=== PATIENT | male | born 1965 | race African-American/Black ===

== ENCOUNTER 2016-11-30 18:41 | Inpatient (IN) | payer OTHER ==
[2016-11-30 19:35] VITALS: BMI 21.4
--- NOTE | 2016-11-30 19:46 | HP ---
CIWA Score - CIWA Score Nausea/Vomitin Muscle Tremors: 4-Moderate,w/Arms Extend Anxiety: 4-Mod. Anxious/Guarded Agitation: 4-Moderately Restless Paroxysmal Sweats: 1-Minimal Palms Moist Orientation: 1-Uncertain about Date Tacttile Disturbances: 0-None Auditory Disturbances: 0-None Visual Disturbances: 0-None Headache: 3-Moderate CIWA-Ar Total Score: 19 Admission ROS BHS - HPI Chief Complaint: withdrawal sx Allergies/Adverse Reactions: Allergies Allergy/AdvReac Type Severity Reaction Status Date / Time No Known Allergies Allergy Verified 11/30/16 20:15 History of Present Illness: 51 years old male with long history of alcohol nicotine dependence, denies medical issue has depression is admitted to detox Exam Limitations: No Limitations - Ebola screening Have you traveled outside of the country in the last 21 days: No Have you had contact with anyone from an Ebola affected area: No Have you been sick,other than usual withdrawal symptoms: No Do you have a fever: No - Review of Systems Constitutional: Chills, Loss of Appetite, Changes in sleep, Unexplained wgt Loss EENT: reports: Hearing Loss (right ear) Respiratory: reports: SOB with Exertion, Productive cough Cardiac: reports: Palpitations GI: reports: Nausea, Poor Fluid Intake, Vomiting, Indigestion, Abdominal cramping : reports: No Symptoms Reported Musculoskeletal: reports: Back Pain Integumentary: reports: No Symptoms Reported Neuro: reports: Seizure (last episode unknown), Tremors Endocrine: reports: No Symptoms Reported Hematology: reports: No Symptoms Reported Psychiatric: reports: Judgement Intact, Depressed Other Systems: Reviewed and Negative Patient History - Patient Medical History Hx Anemia: No Hx Asthma: No (BUT PAST HX OF SOB) Hx Chronic Obstructive Pulmonary Disease (COPD): Yes Hx Cancer: No Hx Cardiac Disorders: No Hx Congestive Heart Failure: No Hx Hypertension: No Hx Hypercholesterolemia: No Hx Pacemaker: No HX Cerebrovascular Accident: No Hx Seizures: Yes (DUE TO ALCOHOL W/S) Hx Dementia: No Hx Diabetes: No Hx Gastrointestinal Disorders: No Hx Liver Disease: No Hx Genitourinary Disorders: No Hx Sexually Transmitted Disorders: No Hx Renal Disease (ESRD): No Hx Thyroid Disease: No Hx Human Immunodeficiency Virus (HIV): No (NEGATIVE HX) Hx Hepatitis C: No Hx Depression: Yes (NO CURRENT MED) Hx Suicide Attempt: Yes (OD ON PILLS AT 30+ YRS; DENIES CURRENT IDEATIONS) Hx Bipolar Disorder: No Hx Schizophrenia: No - Patient Surgical History Past Surgical History: No Hx Neurologic Surgery: No Hx Cataract Extraction: No Hx Cardiac Surgery: No Hx Lung Surgery: No Hx Breast Surgery: No Hx Breast Biopsy: No Hx Abdominal Surgery: No Hx Appendectomy: No Hx Cholecystectomy: No Hx Genitourinary Surgery: No Hx Orthopedic Surgery: No - PPD History Previous Implant?: Yes Documented Results: Negative w/proof Implanted On Prior [facility] Admission?: Yes Date: 02/25/16 PPD to be Administered?: No - Smoking Cessation Smoking history: Current every day smoker Have you smoked in the past 12 months: Yes Aproximately how many cigarettes per day: 20 Cigars Per Day: 0 Hx Chewing Tobacco Use: No Initiated information on smoking cessation: Yes 'Breaking Loose' booklet given: 11/30/16 - Substance & Tx. History Hx Alcohol Use: Yes Hx Substance Use: No Substance Use Type: Alcohol Hx Substance Use Treatment: Yes - Substances Abused Alcohol Route: Oral Frequency: Daily Amount used: quart beer Age of first use: 13 Date of Last Use: 11/30/16 Family Disease History - Family Disease History Family Disease History: Diabetes: Mother (), Brother, Sister, Heart Disease: Mother, Other: Father (ALCOHOLISM-) Admission Physical Exam S - Vital Signs Vital Signs: Vital Signs - 24 hr 11/30/16 19:02 Temperature 98.6 F Pulse Rate 106 H Respiratory 20 Rate Blood Pressure 152/93 - Physical General Appearance: Yes: Appropriately Dressed, Moderate Distress, Thin, Tremorous, Irritable, Sweating, Anxious HEENTM: Yes: Hearing grossly Normal, Normal ENT Inspection, Normocephalic, Normal Voice Respiratory: Yes: Chest Non-Tender, Lungs Clear, Normal Breath Sounds, No Respiratory Distress, No Accessory Muscle Use Neck: Yes: Supple, Trachea in good position Breast: Yes: Breasts Symetrical Cardiology: Yes: Regular Rhythm, Regular Rate, S1, S2 Abdominal: Yes: Non Tender, Soft Genitourinary: Yes: Within Normal Limits Back: Yes: Normal Inspection Musculoskeletal: Yes: full range of Motion, Gait Steady, Back pain, Muscle Pain Extremities: Yes: Normal Range of Motion, Non-Tender, Tremors Neurological: Yes: Alert, Motor Strength 5/5, Normal Response, Depressed Affect Integumentary: Yes: Warm Lymphatic: Yes: Within Normal Limits - Diagnostic (1) Alcohol dependence with uncomplicated withdrawal Current Visit: Yes Status: Acute (2) Nicotine dependence Current Visit: Yes Status: Acute Qualifiers: Nicotine product type: cigarettes Substance use status: in withdrawal Qualified Code(s): F17.213 - Nicotine dependence, cigarettes, with withdrawal (3) Weight loss Current Visit: Yes Status: Acute (4) GERD (gastroesophageal reflux disease) Current Visit: Yes Status: Acute Qualifiers: Esophagitis presence: without esophagitis Qualified Code(s): K21.9 - Gastro-esophageal reflux disease without esophagitis (5) Depression (emotion) Current Visit: Yes Status: Suspected Qualifiers: Depression Type: dysthymia Qualified Code(s): F34.1 - Dysthymic disorder Cleared for Admission S - Detox or Rehab [facility] Level of Care: Medically Managed Detox Regimen/Protocol: Librium S Breath Alcohol Content Breath Alcohol Content: 0 Urine Drug Screen - Results Drug Screen Negative: Yes
[2016-11-30] MEDS ORDERED: chlordiazePOXIDE HCL 25 MG CAPSULE PO ONE (19:50)
[2016-11-30] MEDS ORDERED: NICOTINE POLACRILEX 2 MG GUM BC PRN (19:50)
[2016-11-30] MEDS ORDERED: diphenhydrAMINE HCL 50 MG CAPSULE PO PRN (19:50)
[2016-11-30] MEDS ORDERED: MAGNESIUM CITRATE 300 ML BOTTLE PO PRN (19:50)
[2016-11-30] MEDS ORDERED: MENTHOL/PHENOL 1 EACH UD MM PRN (19:50)
[2016-11-30] MEDS ORDERED: hydrOXYzine PAMOATE 50 MG CAPSULE (FP) PO PRN (19:50)
[2016-11-30] MEDS ORDERED: MAG HYDROX/AL HYDROX/SIMETH 30 ML UNIT-DOSE CUP PO PRN (19:50)
[2016-11-30] MEDS ORDERED: LOPERAMIDE HCL 2 MG CAPSULE PO PRN (19:50)
[2016-11-30] MEDS ORDERED: chlordiazePOXIDE HCL 25 MG CAPSULE PO PRN (19:50)
[2016-11-30] MEDS ORDERED: MAGNESIUM HYDROX 2400MG/30ML ORAL SUSPENSION 30 ML CUP PO PRN (19:50)
[2016-11-30] MEDS ORDERED: P-EPHED 60MG/TRIPROLIDI 2.5MG TABLET PO PRN (19:50)
[2016-11-30] MEDS ORDERED: ONDANSETRON *ODT* 4 MG TABLET SL PRN (19:52)
[2016-11-30] MEDS: THIAMINE HCL 100 MG TABLET (FP) PO SCH (21:23)
[2016-11-30] MEDS: cloNIDine HCL 0.1 MG TABLET PO SCH (21:24)
[2016-11-30] MEDS: RANITIDINE HCL 150 MG TABLET (FP) PO SCH (21:24)
[2016-11-30 23:41] LABS: URINE APPEARANCE CLEAR; URINE BILIRUBIN NEGATIVE (NEGATIVE); URINE BLOOD NEGATIVE (NEGATIVE); URINE COLOR YELLOW; URINE GLUCOSE (UA) NEGATIVE (NEGATIVE); URINE KETONE TRACE (NEGATIVE); URINE LEUK ESTERASE NEGATIVE (NEGATIVE); URINE NITRITE NEGATIVE (NEGATIVE); URINE PROTEIN NEGATIVE (NEGATIVE); URINE UROBILINOGEN 2.0 E.U/dl E.U./dl (0.2-1.0)
[2016-12-01] MEDS: chlordiazePOXIDE HCL 25 MG CAPSULE PO SCH ×5 (00:12→22:27)
[2016-12-01 10:04] LABS: MCH 32.4 pg (25.7-33.7); MCHC 33.2 g/dl (32.0-35.9); MEAN CELL VOLUME 97.6 fl (80-96); MEAN PLT VOLUME 7.3 fl (7.5-11.1); PLATELET COUNT 215 K/MM3 (134-434); RDW 14.8 % (11.9-15.9); WHITE BLOOD COUNT 6.2 K/mm3 (4.0-10.0)
[2016-12-01] MEDS: cloNIDine HCL 0.1 MG TABLET PO SCH ×2 (10:22→22:28)
[2016-12-01] MEDS: PRENATAL VITAMINS W/ FOLIC ACID TABLET (FP) PO SCH (10:22)
[2016-12-01] MEDS: NICOTINE 21 MG/24 HOURS TOPICAL PATCH TD SCH (10:23)
[2016-12-01] MEDS: guaiFENesin/D-METHORPHAN HB 10 ML UNIT-DOSE CUPS PO PRN ×2 (10:24→22:32)
[2016-12-01] MEDS: RANITIDINE HCL 150 MG TABLET (FP) PO SCH ×2 (10:24→22:28)
[2016-12-01] MEDS: ACETAMINOPHEN 325 MG TABLET (FP) PO PRN ×2 (10:25→22:32)
[2016-12-01 10:34] LABS: ALBUMIN 3.5 g/dl (3.4-5.0); ALK PHOS 48 U/L (45-117); ANION GAP 9 (8-16); BILIRUBIN,TOTAL 0.6 mg/dL (0.2-1.0); CO2 28 mmol/L (21-32); CREATININE 0.8 mg/dL (0.7-1.3); GLUCOSE,RANDOM 110 mg/dL (74-106); SGOT/AST 25 U/L (15-37); SGPT/ALT 26 U/L (12-78)
--- NOTE | 2016-12-01 11:32 | PN ---
[facility] CIWA - CIWA Score Nausea/Vomitin-No Nausea/No Vomiting Muscle Tremors: 4-Moderate,w/Arms Extend Anxiety: 4-Mod. Anxious/Guarded Agitation: 4-Moderately Restless Paroxysmal Sweats: 1-Minimal Palms Moist Orientation: 0-Oriented Tacttile Disturbances: 3-Moderate Itch/Numb/Burn Auditory Disturbances: 0-None Visual Disturbances: 0-None Headache: 0-None Present CIWA-Ar Total Score: 16 BHS Progress Note (SOAP) Subjective: ANXIETY,TREMORS,SWEATS. Objective: 12/01/16 11:31 Vital Signs Temperature 96.6 F L 12/01/16 10:27 Pulse Rate 75 12/01/16 10:27 Respiratory Rate 20 12/01/16 10:27 Blood Pressure 128/75 12/01/16 10:27 O2 Sat by Pulse Oximetry (%) Laboratory Last Values WBC 6.2 K/mm3 (4.0-10.0) 12/01/16 07:15 RBC 4.31 M/mm3 (4.00-5.60) 12/01/16 07:15 Hgb 14.0 GM/dL (11.7-16.9) 12/01/16 07:15 Hct 42.1 % (35.4-49) 12/01/16 07:15 MCV 97.6 fl (80-96) H 12/01/16 07:15 MCHC 33.2 g/dl (32.0-35.9) 12/01/16 07:15 RDW 14.8 % (11.9-15.9) D 12/01/16 07:15 Plt Count 215 K/MM3 (134-434) D 12/01/16 07:15 MPV 7.3 fl (7.5-11.1) L 12/01/16 07:15 Sodium 142 mmol/L (136-145) 12/01/16 07:15 Potassium 4.0 mmol/L (3.5-5.1) 12/01/16 07:15 Chloride 105 mmol/L (98-107) 12/01/16 07:15 Carbon Dioxide 28 mmol/L (21-32) 12/01/16 07:15 Anion Gap 9 (8-16) 12/01/16 07:15 BUN 14 mg/dL (7-18) 12/01/16 07:15 Creatinine 0.8 mg/dL (0.7-1.3) D 12/01/16 07:15 Creat Clearance w eGFR > 60 (>60) 12/01/16 07:15 Random Glucose 110 mg/dL (74-106) H D 12/01/16 07:15 Calcium 9.0 mg/dL (8.5-10.1) 12/01/16 07:15 Total Bilirubin 0.6 mg/dL (0.2-1.0) 12/01/16 07:15 AST 25 U/L (15-37) 12/01/16 07:15 ALT 26 U/L (12-78) 12/01/16 07:15 Alkaline Phosphatase 48 U/L (45-117) 12/01/16 07:15 Total Protein 7.0 g/dl (6.4-8.2) 12/01/16 07:15 Albumin 3.5 g/dl (3.4-5.0) 12/01/16 07:15 Urine Color Yellow 11/30/16 22:28 Urine Appearance Clear 11/30/16 22:28 Urine pH 5.0 (5.0-8.0) 11/30/16 22:28 Ur Specific [place] 1.020 (1.001-1.035) 11/30/16 22:28 Urine Protein Negative (NEGATIVE) 11/30/16 22:28 Urine Glucose (UA) Negative (NEGATIVE) 11/30/16 22:28 Urine Ketones Trace (NEGATIVE) H 11/30/16 22:28 Urine Blood Negative (NEGATIVE) 11/30/16 22:28 Urine Nitrite Negative (NEGATIVE) 11/30/16 22:28 Urine Bilirubin Negative (NEGATIVE) 11/30/16 22:28 Urine Urobilinogen 2.0 e.u/dl E.U./dl (0.2-1.0) 11/30/16 22:28 Ur Leukocyte Esterase Negative (NEGATIVE) 11/30/16 22:28 Assessment: 12/01/16 11:31 WITHDRAWAL SX Plan: CONTINUE DETOX INCREASE PO FLUIDS
[2016-12-01] MEDS ORDERED: INFLUENZA VACCINE 45 MCG/0.5 ML (MDV 16-17) IM ONE (12:00)
[2016-12-01 12:53] LABS: HIV 1 & 2 AB NEGATIVE; HIV 1 AGp24 NEGATIVE
--- NOTE | 2016-12-01 14:26 | EKG ---
Test Reason : Blood Pressure : / mmHG Vent. Rate : 086 BPM Atrial Rate : 086 BPM P-R Int : 138 ms QRS Dur : 140 ms QT Int : 418 ms P-R-T Axes : 055 053 020 degrees QTc Int : 500 ms NORMAL SINUS RHYTHM RIGHT BUNDLE BRANCH BLOCK ABNORMAL ECG WHEN COMPARED WITH ECG OF 15-JUL-2014 03:40, NO SIGNIFICANT CHANGE WAS FOUND Confirmed by DIAMOND DELUCA MD ([id number]) on 12/01/2016 2:25:59 PM Referred By: Matt Shane Confirmed By:DIAMOND DELUCA MD
--- NOTE | 2016-12-01 15:24 | CONSULT ---
[facility] Psychiatric Consult - Data Date of interview: 12/01/16 Admission source: [facility] Identifying data: This is 51 years old male with history of Schozoaffective disorder recently [facility], reports intoxicated with: Alcohol, Cannabis, Cocaine, Nicotine and PCP Substance Abuse History: - Smoking Cessation. Smoking history: Current every day smoker. Have you smoked in the past 12 months: Yes. Aproximately how many cigarettes per day: 20. Cigars Per Day: 0. Hx Chewing Tobacco Use: No. Initiated information on smoking cessation: Yes. 'Breaking Loose' booklet given : 11/30/16. - Substance & Tx. History. Hx Alcohol Use: Yes. Hx Substance Use : No. Substance Use Type: Alcohol. Hx Substance Use Treatment: Yes. - Substances Abused. Alcohol. Route: Oral. Frequency: Daily. Amount used: quart beer. Age of first use: 13. Date of Last Use: 11/30/16 Medical History: GERD, Weight loss history, DVT history, Seizure history, history of Rhabdomyilysis Psychiatric History: Patient reports history of Schizoaffective disorder, reports recently dischrged from [facility] [place], [place], where he spent 2 years, reports no medications taking pruior to admission, denies suicidAL history Physical/Sexual Abuse/Trauma History: Denies Additional Comment: OBSERVATION. Detox Unit Care Protocol Mental Status Exam - Mental Status Exam Alert and Oriented to: Person Cognitive Function: Fair Patient Appearance: Unkempt Mood: Suspicious, Anxious Affect: Constricted Patient Behavior: Cooperative Speech Pattern: Excessive Voice Loudness: Mildly Loud Thought Process: Circumstantial Thought Disorder: Being Controlled Hallucinations: Denies Suicidal Ideation: Denies Homicidal Ideation: Denies Insight/Judgement: Fair Sleep: Difficulty falling asleep Appetite: Weight loss Muscle strength/Tone: Mild Hypertonicity Gait/Station: Normal Additional Comments: OBSERVATION. Detox Unit Care Protocol Psychiatric Findings - Problem List ([place] 1, 2,3) (1) Alcohol dependence with uncomplicated withdrawal Current Visit: Yes Status: Acute (2) Nicotine dependence Current Visit: Yes Status: Acute Qualifiers: Nicotine product type: cigarettes Substance use status: in withdrawal Qualified Code(s): F17.213 - Nicotine dependence, cigarettes, with withdrawal (3) Weight loss Current Visit: Yes Status: Acute (4) Drug-induced mood disorder Current Visit: No Status: Acute (5) Benzodiazepine abuse Current Visit: No Status: Chronic (6) Cocaine abuse Current Visit: No Status: Chronic (7) PCP dependence Current Visit: No Status: Chronic (8) Schizoaffective disorder Current Visit: No Status: Chronic (9) Non compliance with medical treatment Current Visit: Yes Status: Acute - Initial Treatment Plan Initial Treatment Plan: OBSERVATION. Detox Unit Care Protocol
[2016-12-01] MEDS ORDERED: QUEtiapine FUMARATE 25 MG TABLET (FP) ONE (21:41)
[2016-12-01] MEDS: QUEtiapine FUMARATE 50 MG TABLET PO SCH (22:28)
[2016-12-01] MEDS: THIAMINE HCL 100 MG TABLET (FP) PO SCH (22:28)
[2016-12-02] MEDS: CYCLOBENZAPRINE HCL 10 MG TABLET (FP) PO PRN ×2 (06:03→22:18)
[2016-12-02] MEDS: chlordiazePOXIDE HCL 25 MG CAPSULE PO SCH ×3 (06:03→17:51)
[2016-12-02] MEDS: cloNIDine HCL 0.1 MG TABLET PO SCH ×2 (10:13→22:18)
[2016-12-02] MEDS: NICOTINE 21 MG/24 HOURS TOPICAL PATCH TD SCH (10:13)
[2016-12-02] MEDS: RANITIDINE HCL 150 MG TABLET (FP) PO SCH ×2 (10:13→22:18)
[2016-12-02] MEDS: PRENATAL VITAMINS W/ FOLIC ACID TABLET (FP) PO SCH (10:13)
--- NOTE | 2016-12-02 10:24 | PN ---
[facility] CIWA - CIWA Score Nausea/Vomitin-No Nausea/No Vomiting Muscle Tremors: 4-Moderate,w/Arms Extend Anxiety: 4-Mod. Anxious/Guarded Agitation: 4-Moderately Restless Paroxysmal Sweats: 1-Minimal Palms Moist Orientation: 0-Oriented Tacttile Disturbances: 3-Moderate Itch/Numb/Burn Auditory Disturbances: 0-None Visual Disturbances: 0-None Headache: 0-None Present CIWA-Ar Total Score: 16 S Progress Note (SOAP) Subjective: ANXIETY,IRRITABILITY,AGITATIONS. PT WAS VERY ARGUMENTATIVE,LOUD AND CURSING AT ASSESSMENT DIRECTOR([facility]) THIS MORNING WHEN ASKED TO COME FOR HIS VITAL SIGNS. PT WAS SPOKEN TO BY THIS FIRE CONTROL TECHNICIAN G BUT HE REFUSED TO STOP.PT WAS SEEN BY NURSING SUPERANNUATION CLERK AND FINALLY CALMED DOWN. Objective: 12/02/16 10:24 Vital Signs Temperature 95.4 F L 12/02/16 09:55 Pulse Rate 64 12/02/16 09:55 Respiratory Rate 18 12/02/16 09:55 Blood Pressure 124/77 12/02/16 09:55 O2 Sat by Pulse Oximetry (%) Laboratory Last Values WBC 6.2 K/mm3 (4.0-10.0) 12/01/16 07:15 RBC 4.31 M/mm3 (4.00-5.60) 12/01/16 07:15 Hgb 14.0 GM/dL (11.7-16.9) 12/01/16 07:15 Hct 42.1 % (35.4-49) 12/01/16 07:15 MCV 97.6 fl (80-96) H 12/01/16 07:15 MCHC 33.2 g/dl (32.0-35.9) 12/01/16 07:15 RDW 14.8 % (11.9-15.9) D 12/01/16 07:15 Plt Count 215 K/MM3 (134-434) D 12/01/16 07:15 MPV 7.3 fl (7.5-11.1) L 12/01/16 07:15 Sodium 142 mmol/L (136-145) 12/01/16 07:15 Potassium 4.0 mmol/L (3.5-5.1) 12/01/16 07:15 Chloride 105 mmol/L (98-107) 12/01/16 07:15 Carbon Dioxide 28 mmol/L (21-32) 12/01/16 07:15 Anion Gap 9 (8-16) 12/01/16 07:15 BUN 14 mg/dL (7-18) 12/01/16 07:15 Creatinine 0.8 mg/dL (0.7-1.3) D 12/01/16 07:15 Creat Clearance w eGFR > 60 (>60) 12/01/16 07:15 Random Glucose 110 mg/dL (74-106) H D 12/01/16 07:15 Calcium 9.0 mg/dL (8.5-10.1) 12/01/16 07:15 Total Bilirubin 0.6 mg/dL (0.2-1.0) 12/01/16 07:15 AST 25 U/L (15-37) 12/01/16 07:15 ALT 26 U/L (12-78) 12/01/16 07:15 Alkaline Phosphatase 48 U/L (45-117) 12/01/16 07:15 Total Protein 7.0 g/dl (6.4-8.2) 12/01/16 07:15 Albumin 3.5 g/dl (3.4-5.0) 12/01/16 07:15 Urine Color Yellow 11/30/16 22:28 Urine Appearance Clear 11/30/16 22:28 Urine pH 5.0 (5.0-8.0) 11/30/16 22:28 Ur Specific [place] 1.020 (1.001-1.035) 11/30/16 22:28 Urine Protein Negative (NEGATIVE) 11/30/16 22:28 Urine Glucose (UA) Negative (NEGATIVE) 11/30/16 22:28 Urine Ketones Trace (NEGATIVE) H 11/30/16 22:28 Urine Blood Negative (NEGATIVE) 11/30/16 22:28 Urine Nitrite Negative (NEGATIVE) 11/30/16 22:28 Urine Bilirubin Negative (NEGATIVE) 11/30/16 22:28 Urine Urobilinogen 2.0 e.u/dl E.U./dl (0.2-1.0) 11/30/16 22:28 Ur Leukocyte Esterase Negative (NEGATIVE) 11/30/16 22:28 RPR Titer Nonreactive (NONREACTIVE) 12/01/16 07:15 Hepatitis C Antibody <0.1 s/co ratio (0.0-0.9) 12/01/16 08:05 HIV 1&2 Antibody Screen Negative 12/01/16 07:20 HIV P24 Antigen Negative 12/01/16 07:20 Assessment: 12/02/16 10:24 WITHDRAWAL SX Plan: CONTINUE DETOX
[2016-12-02] MEDS: THIAMINE HCL 100 MG TABLET (FP) PO SCH (22:18)
[2016-12-02] MEDS: QUEtiapine FUMARATE 50 MG TABLET PO SCH (22:18)
[2016-12-02] MEDS: chlordiazePOXIDE 5 MG CAPSULE PO SCH (22:19)
[2016-12-03] MEDS: chlordiazePOXIDE 5 MG CAPSULE PO SCH ×3 (05:46→17:36)
[2016-12-03] MEDS: PRENATAL VITAMINS W/ FOLIC ACID TABLET (FP) PO SCH (10:06)
[2016-12-03] MEDS: cloNIDine HCL 0.1 MG TABLET PO SCH ×2 (10:06→22:19)
[2016-12-03] MEDS: NICOTINE 21 MG/24 HOURS TOPICAL PATCH TD SCH (10:06)
[2016-12-03] MEDS: RANITIDINE HCL 150 MG TABLET (FP) PO SCH ×2 (10:06→22:19)
--- NOTE | 2016-12-03 10:06 | PN ---
BHS Progress Note (SOAP) Subjective: SWEATING,INTERRUPTED SLEEP,RESTLESS Objective: 12/03/16 10:06 Vital Signs - 8 hr 12/03/16 06:24 Temperature 96.1 F L Pulse Rate 61 Respiratory 18 Rate Blood Pressure 132/91 Laboratory Last Values WBC 6.2 K/mm3 (4.0-10.0) 12/01/16 07:15 RBC 4.31 M/mm3 (4.00-5.60) 12/01/16 07:15 Hgb 14.0 GM/dL (11.7-16.9) 12/01/16 07:15 Hct 42.1 % (35.4-49) 12/01/16 07:15 MCV 97.6 fl (80-96) H 12/01/16 07:15 MCHC 33.2 g/dl (32.0-35.9) 12/01/16 07:15 RDW 14.8 % (11.9-15.9) D 12/01/16 07:15 Plt Count 215 K/MM3 (134-434) D 12/01/16 07:15 MPV 7.3 fl (7.5-11.1) L 12/01/16 07:15 Sodium 142 mmol/L (136-145) 12/01/16 07:15 Potassium 4.0 mmol/L (3.5-5.1) 12/01/16 07:15 Chloride 105 mmol/L (98-107) 12/01/16 07:15 Carbon Dioxide 28 mmol/L (21-32) 12/01/16 07:15 Anion Gap 9 (8-16) 12/01/16 07:15 BUN 14 mg/dL (7-18) 12/01/16 07:15 Creatinine 0.8 mg/dL (0.7-1.3) D 12/01/16 07:15 Creat Clearance w eGFR > 60 (>60) 12/01/16 07:15 Random Glucose 110 mg/dL (74-106) H D 12/01/16 07:15 Calcium 9.0 mg/dL (8.5-10.1) 12/01/16 07:15 Total Bilirubin 0.6 mg/dL (0.2-1.0) 12/01/16 07:15 AST 25 U/L (15-37) 12/01/16 07:15 ALT 26 U/L (12-78) 12/01/16 07:15 Alkaline Phosphatase 48 U/L (45-117) 12/01/16 07:15 Total Protein 7.0 g/dl (6.4-8.2) 12/01/16 07:15 Albumin 3.5 g/dl (3.4-5.0) 12/01/16 07:15 Urine Color Yellow 11/30/16 22:28 Urine Appearance Clear 11/30/16 22:28 Urine pH 5.0 (5.0-8.0) 11/30/16 22:28 Ur Specific [place] 1.020 (1.001-1.035) 11/30/16 22:28 Urine Protein Negative (NEGATIVE) 11/30/16 22:28 Urine Glucose (UA) Negative (NEGATIVE) 11/30/16 22:28 Urine Ketones Trace (NEGATIVE) H 11/30/16 22:28 Urine Blood Negative (NEGATIVE) 11/30/16 22:28 Urine Nitrite Negative (NEGATIVE) 11/30/16 22:28 Urine Bilirubin Negative (NEGATIVE) 11/30/16 22:28 Urine Urobilinogen 2.0 e.u/dl E.U./dl (0.2-1.0) 11/30/16 22:28 Ur Leukocyte Esterase Negative (NEGATIVE) 11/30/16 22:28 RPR Titer Nonreactive (NONREACTIVE) 12/01/16 07:15 Hepatitis C Antibody <0.1 s/co ratio (0.0-0.9) 12/01/16 08:05 HIV 1&2 Antibody Screen Negative 12/01/16 07:20 HIV P24 Antigen Negative 12/01/16 07:20 LABS NOTED Assessment: 12/03/16 10:06 WITHDRAWAL SX. Plan: CONTINUE DETOX
[2016-12-03] MEDS: guaiFENesin/D-METHORPHAN HB 10 ML UNIT-DOSE CUPS PO PRN (20:00)
[2016-12-03] MEDS ORDERED: TRIMETHOBENZAMIDE HCL 200MG/2ML INJ IM PRN (20:07)
[2016-12-03] MEDS: chlordiazePOXIDE HCL 10 MG CAPSULE PO SCH (22:19)
[2016-12-03] MEDS: THIAMINE HCL 100 MG TABLET (FP) PO SCH (22:19)
[2016-12-03] MEDS: QUEtiapine FUMARATE 50 MG TABLET PO SCH (22:19)
[2016-12-04] MEDS: chlordiazePOXIDE HCL 10 MG CAPSULE PO SCH ×2 (05:57→10:28)
[2016-12-04 09:28] VITALS: BP 124/78; PULSE 74; TEMP 97.5
[2016-12-04] MEDS: RANITIDINE HCL 150 MG TABLET (FP) PO SCH (10:26)
[2016-12-04] MEDS: NICOTINE 21 MG/24 HOURS TOPICAL PATCH TD SCH (10:28)
[2016-12-04] MEDS: cloNIDine HCL 0.1 MG TABLET PO SCH (10:28)
[2016-12-04] MEDS: PRENATAL VITAMINS W/ FOLIC ACID TABLET (FP) PO SCH (10:28)
--- NOTE | 2016-12-04 11:45 | DS ---
[facility] Detox Discharge Summary Admission Date: 11/30/16 Discharge Date: 12/04/16 - History Present History: Alcohol Dependence Pertinent Past History: COPD - Physical Exam Results Vital Signs: Vital Signs Temperature 97.5 F L 12/04/16 09:27 Pulse Rate 74 12/04/16 09:27 Respiratory Rate 18 12/04/16 09:27 Blood Pressure 124/78 12/04/16 09:27 O2 Sat by Pulse Oximetry (%) Pertinent Admission Physical Exam Findings: Withdrawal symptoms Laboratory Tests 11/30/16 12/01/16 12/01/16 22:28 07:15 07:15 WBC 6.2 RBC 4.31 Hgb 14.0 Hct 42.1 MCV 97.6 H MCHC 33.2 RDW 14.8 D Plt Count 215 D MPV 7.3 L Sodium 142 Potassium 4.0 Chloride 105 Carbon Dioxide 28 Anion Gap 9 BUN 14 Creatinine 0.8 D Creat Clearance w eGFR > 60 Random Glucose 110 H D Calcium 9.0 Total Bilirubin 0.6 AST 25 ALT 26 Alkaline Phosphatase 48 Total Protein 7.0 Albumin 3.5 Urine Color Yellow Urine Appearance Clear Urine pH 5.0 Ur Specific [place] 1.020 Urine Protein Negative Urine Glucose (UA) Negative Urine Ketones Trace H Urine Blood Negative Urine Nitrite Negative Urine Bilirubin Negative Urine Urobilinogen 2.0 e.u/dl Ur Leukocyte Esterase Negative RPR Titer Hepatitis C Antibody HIV 1&2 Antibody Screen HIV P24 Antigen 12/01/16 12/01/16 12/01/16 07:15 07:20 08:05 WBC RBC Hgb Hct MCV MCHC RDW Plt Count MPV Sodium Potassium Chloride Carbon Dioxide Anion Gap BUN Creatinine Creat Clearance w eGFR Random Glucose Calcium Total Bilirubin AST ALT Alkaline Phosphatase Total Protein Albumin Urine Color Urine Appearance Urine pH Ur Specific [place] Urine Protein Urine Glucose (UA) Urine Ketones Urine Blood Urine Nitrite Urine Bilirubin Urine Urobilinogen Ur Leukocyte Esterase RPR Titer Nonreactive Hepatitis C Antibody <0.1 HIV 1&2 Antibody Screen Negative HIV P24 Antigen Negative Labs noted - Treatment Hospital Course: Detox Protocol Followed, Detoxed Safely, Responded well, Discharged Condition Good - Medication Discharge Medications: Ambulatory Orders Quetiapine Fumarate [Seroquel -] 50 mg PO HS #30 tablet 12/01/16 - Diagnosis (1) Alcohol dependence with uncomplicated withdrawal Status: Acute (2) Nicotine dependence Status: Chronic Qualifiers: Nicotine product type: cigarettes Substance use status: in withdrawal Qualified Code(s): F17.213 - Nicotine dependence, cigarettes, with withdrawal (3) COPD (chronic obstructive pulmonary disease) Status: Chronic (4) Alcohol related seizure Status: Chronic (5) Drug-induced mood disorder Status: Acute (6) Schizoaffective disorder Status: Chronic - AMA Did Patient Leave Against Medical Advice: No
== END 2016-12-04 10:50 | disposition home or self-care (01) | DRG 775 ==
LOC: YASAS 18:41 → Y3N 20:13
PROVIDERS: ADMIT Internal Medicine; ATTEND Internal Medicine
PROC: HZ2ZZZZ Detoxification Services for Substance Abuse Treatment (ICD-10-PCS; principal; 2016-11-30)
DX: F10.230 Alcohol dependence with withdrawal, uncomplicated (principal); F17.210 Nicotine dependence, cigarettes, uncomplicated; F19.24 Other psychoactive substance dependence with psychoactive substance-induced mood disorder; F25.9 Schizoaffective disorder, unspecified; J44.9 Chronic obstructive pulmonary disease, unspecified; Z86.69 Personal history of other diseases of the nervous system and sense organs; Z86.718 Personal history of other venous thrombosis and embolism; Z87.898 Personal history of other specified conditions; Z91.14 Patient's other noncompliance with medication regimen; Z91.5 Personal history of self-harm
CPT/HCPCS: 36415; 80053; 81003; 85027; 86593; 86803; 87389; 93005; 93010

== ENCOUNTER 2016-12-07 09:45 | Inpatient (IN) | payer OTHER ==
[2016-12-07 10:40] VITALS: BMI 30.4
[2016-12-07] MEDS ORDERED: hydrOXYzine PAMOATE 50 MG CAPSULE (FP) PO PRN (14:14)
[2016-12-07] MEDS ORDERED: MAGNESIUM HYDROX 2400MG/30ML ORAL SUSPENSION 30 ML CUP PO PRN (14:14)
[2016-12-07] MEDS ORDERED: MAG HYDROX/AL HYDROX/SIMETH 30 ML UNIT-DOSE CUP PO PRN (14:14)
[2016-12-07] MEDS ORDERED: ACETAMINOPHEN 325 MG TABLET (FP) PO PRN (14:14)
[2016-12-07] MEDS ORDERED: guaiFENesin/D-METHORPHAN HB 10 ML UNIT-DOSE CUPS PO PRN (14:14)
[2016-12-07] MEDS ORDERED: diphenhydrAMINE HCL 50 MG CAPSULE PO PRN (14:14)
[2016-12-07] MEDS ORDERED: P-EPHED 60MG/TRIPROLIDI 2.5MG TABLET PO PRN (14:14)
[2016-12-07] MEDS ORDERED: NICOTINE POLACRILEX 4 MG GUM BUC PRN (14:14)
[2016-12-07] MEDS ORDERED: MAGNESIUM CITRATE 300 ML BOTTLE PO PRN (14:14)
[2016-12-07] MEDS ORDERED: MENTHOL/PHENOL 1 EACH UD MM PRN (14:14)
[2016-12-07] MEDS ORDERED: LOPERAMIDE HCL 2 MG CAPSULE PO PRN (14:14)
--- NOTE | 2016-12-07 14:14 | HP ---
[facility] Assess/Revision - Admission History Admitted to Rehab from: [facility] - Vital signs Vital Signs: Vital Signs Period Temp Pulse Resp BP Sys/[place] Pulse Ox Last 24 Hr 96.0 F 92 20 148/71 - Findings Detox History & Physical reviewed: Yes Concur with findings: Yes
[2016-12-07 20:38] LABS: URINE APPEARANCE CLEAR; URINE BILIRUBIN NEGATIVE (NEGATIVE); URINE BLOOD NEGATIVE (NEGATIVE); URINE COLOR LTYELLOW; URINE GLUCOSE (UA) NEGATIVE (NEGATIVE); URINE KETONE NEGATIVE (NEGATIVE); URINE LEUK ESTERASE NEGATIVE (NEGATIVE); URINE NITRITE NEGATIVE (NEGATIVE); URINE PROTEIN NEGATIVE (NEGATIVE); URINE UROBILINOGEN NEGATIVE E.U./dl (0.2-1.0)
[2016-12-07] MEDS ORDERED: QUEtiapine FUMARATE 50 MG TABLET PO ONE (23:00)
[2016-12-07] MEDS: THIAMINE HCL 100 MG TABLET (FP) PO SCH (23:04)
[2016-12-08] MEDS: PRENATAL VITAMINS W/ FOLIC ACID TABLET (FP) PO SCH (10:01)
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
[2016-12-08] MEDS ORDERED: PNEUMOCOCCAL 23 VACCINE 0.5 ML VIAL IM ONE (12:00)
[2016-12-08] MEDS ORDERED: PNEUMOC 13-VAL CONJ-DIP CRM/PF 0.5 ML DISP.SYRIN IM ONE (12:00)
--- NOTE | 2016-12-08 17:36 | EKG ---
Test Reason : Blood Pressure : / mmHG Vent. Rate : 082 BPM Atrial Rate : 082 BPM P-R Int : 150 ms QRS Dur : 142 ms QT Int : 426 ms P-R-T Axes : 046 040 011 degrees QTc Int : 497 ms NORMAL SINUS RHYTHM RIGHT BUNDLE BRANCH BLOCK ABNORMAL ECG WHEN COMPARED WITH ECG OF 30-NOV-2016 21:28, NO SIGNIFICANT CHANGE WAS FOUND Confirmed by DIAMOND DELUCA MD ([id number]) on 12/08/2016 5:35:40 PM Referred By: Confirmed By:DIAMOND DELUCA MD
[2016-12-08] MEDS: QUEtiapine FUMARATE 100 MG TABLET (FP) PO SCH (21:59)
[2016-12-08] MEDS: IBUPROFEN 400 MG TABLET (FP) PO PRN (21:59)
[2016-12-08] MEDS: THIAMINE HCL 100 MG TABLET (FP) PO SCH (21:59)
[2016-12-09] MEDS: IBUPROFEN 400 MG TABLET (FP) PO PRN (06:59)
[2016-12-09] MEDS: PRENATAL VITAMINS W/ FOLIC ACID TABLET (FP) PO SCH (10:29)
[2016-12-09] MEDS: QUEtiapine FUMARATE 100 MG TABLET (FP) PO SCH (21:41)
[2016-12-09] MEDS: THIAMINE HCL 100 MG TABLET (FP) PO SCH (21:41)
[2016-12-10] MEDS: PRENATAL VITAMINS W/ FOLIC ACID TABLET (FP) PO SCH (10:19)
[2016-12-10] MEDS: QUEtiapine FUMARATE 100 MG TABLET (FP) PO SCH (21:43)
[2016-12-10] MEDS: THIAMINE HCL 100 MG TABLET (FP) PO SCH (21:43)
[2016-12-11] MEDS: PRENATAL VITAMINS W/ FOLIC ACID TABLET (FP) PO SCH (10:47)
[2016-12-11] MEDS: QUEtiapine FUMARATE 100 MG TABLET (FP) PO SCH (21:41)
[2016-12-11] MEDS: THIAMINE HCL 100 MG TABLET (FP) PO SCH (21:41)
[2016-12-12] MEDS: PRENATAL VITAMINS W/ FOLIC ACID TABLET (FP) PO SCH (10:04)
--- NOTE | 2016-12-12 12:11 | PN ---
Psychiatric Progress Note Vital Signs: Vital Signs Period Temp Pulse Resp BP Sys/Mujica Pulse Ox Last 24 Hr 97.3 F 84 20-20 123/94 Date of Session: 12/12/16 Chief Complaint:: Insomnia HPI: Patient addressing Alcohol Dependence comorbid with Nicotine Dependence, Alcohol-Induce Mood Disorder and Antisocvial Personality Disorder ROS: DVT, GERD Current Medications: Active Medications Generic Name Dose Route Start Last Admin Trade Name Freq PRN Reason Stop Dose Admin Acetaminophen 650 mg 12/07/16 14:14 Tylenol - PO Q4H PRN PAIN Al Hydroxide/Mg Hydroxide 30 ml 12/07/16 14:14 Mylanta Oral Suspension - PO Q6H PRN DYSPEPSIA Diphenhydramine HCl 50 mg 12/07/16 14:14 Benadryl - PO HSMR1 PRN INSOMNIA Eucalyptus/Menthol/Phenol/Sorbitol 1 each 12/07/16 14:14 Cepastat Lozenge - MM Q4H PRN SORE THROAT Guaifenesin 10 ml 12/07/16 14:14 12/09/16 21:42 Robitussin Dm - PO 10 ml Q6H PRN Administration COUGH Hydroxyzine Pamoate 50 mg 12/07/16 14:14 Vistaril - PO Q4H PRN AGITATION Ibuprofen 400 mg 12/07/16 14:14 12/09/16 06:59 Motrin - PO 400 mg Q6H PRN Administration SEVERE PAIN Loperamide HCl 4 mg 12/07/16 14:14 Imodium - PO Q6H PRN DIARRHEA Magnesium Citrate 300 ml 12/07/16 14:14 Citroma - PO Q48H PRN CONSTIPATION Magnesium Hydroxide 30 ml 12/07/16 14:14 Milk Of Magnesia - PO DAILY PRN CONSTIPATION Nicotine Polacrilex 4 mg 12/07/16 14:14 Nicorette Gum - BUC Q2H PRN NICOTINE REPLACEMENT RX Multivit/Folic Acid/Iron 1 tab 12/08/16 10:00 12/12/16 10:04 Vitamins (Sjr) - PO 1 tab DAILY UZAIR Administration Pseudoephedrine/Triprolidine 1 combo 12/07/16 14:14 Actifed - PO TID PRN NASAL CONGESTION Quetiapine Fumarate 100 mg 12/08/16 22:00 12/11/16 21:41 Seroquel - PO 100 mg HS UZAIR Administration Thiamine HCl 100 mg 12/07/16 22:00 12/11/16 21:41 Vitamin B1 - PO 100 mg HS UZAIR Administration Medication(s) Change(s): Start Trazadone 100 mg po HS for insomnia Current Side Effect: No Lab tests reviewed: Yes Provider note:: Patient reports experiencing difficulty to sleep. 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 Will start on Trazadone 100 mg po HS. Risks vs Benefits of medication discussed with patient and he agreed to try it Total face to face time:: 25 Mental Status Exam - Mental Status Exam Alert and Oriented to: Time, Place, Person Cognitive Function: Fair Patient Appearance: Well Groomed Mood: Hopeful, Euthymic Affect: Appropriate Patient Behavior: Cooperative Speech Pattern: Clear Voice Loudness: Normal Thought Process: Intact Thought Disorder: Not Present Hallucinations: Denies Suicidal Ideation: Denies Homicidal Ideation: Denies Insight/Judgement: Fair Sleep: Poorly Appetite: Good Muscle strength/Tone: Normal Gait/Station: Normal Psychiatric Treatment Plan - Problem List (1) Alcohol dependence with uncomplicated withdrawal Current Visit: No (2) Nicotine dependence Current Visit: No Qualifiers: Nicotine product type: cigarettes Substance use status: in withdrawal Qualified Code(s): F17.213 - Nicotine dependence, cigarettes, with withdrawal (3) Alcohol-induced mood disorder Current Visit: Yes (4) Bipolar disorder Current Visit: Yes (5) Antisocial personality disorder Current Visit: Yes (6) DVT prophylaxis Current Visit: No (7) GERD (gastroesophageal reflux disease) Current Visit: No Qualifiers: Esophagitis presence: without esophagitis Qualified Code(s): K21.9 - Gastro-esophageal reflux disease without esophagitis Initial treatment plan: 1) Start Trazadone 100 mg po HS for insomnia. 2) Monitor progress
[2016-12-12] MEDS: traZODone HCL 100 MG TABLET (FP) PO SCH (21:55)
[2016-12-12] MEDS: THIAMINE HCL 100 MG TABLET (FP) PO SCH (21:55)
[2016-12-12] MEDS: QUEtiapine FUMARATE 100 MG TABLET (FP) PO SCH (21:55)
[2016-12-13] MEDS: PRENATAL VITAMINS W/ FOLIC ACID TABLET (FP) PO SCH (10:17)
[2016-12-13] MEDS: traZODone HCL 100 MG TABLET (FP) PO SCH (21:22)
[2016-12-13] MEDS: QUEtiapine FUMARATE 100 MG TABLET (FP) PO SCH (21:22)
[2016-12-13] MEDS: THIAMINE HCL 100 MG TABLET (FP) PO SCH (21:22)
[2016-12-14] MEDS: PRENATAL VITAMINS W/ FOLIC ACID TABLET (FP) PO SCH (10:17)
[2016-12-14] MEDS: THIAMINE HCL 100 MG TABLET (FP) PO SCH (21:56)
[2016-12-14] MEDS: traZODone HCL 100 MG TABLET (FP) PO SCH (21:56)
[2016-12-14] MEDS: QUEtiapine FUMARATE 100 MG TABLET (FP) PO SCH (21:56)
[2016-12-15] MEDS: PRENATAL VITAMINS W/ FOLIC ACID TABLET (FP) PO SCH (09:54)
[2016-12-15] MEDS: traZODone HCL 100 MG TABLET (FP) PO SCH (22:02)
[2016-12-15] MEDS: THIAMINE HCL 100 MG TABLET (FP) PO SCH (22:02)
[2016-12-15] MEDS: QUEtiapine FUMARATE 100 MG TABLET (FP) PO SCH (22:03)
[2016-12-15] MEDS: IBUPROFEN 400 MG TABLET (FP) PO PRN (23:32)
[2016-12-16] MEDS: PRENATAL VITAMINS W/ FOLIC ACID TABLET (FP) PO SCH (10:20)
[2016-12-16] MEDS: THIAMINE HCL 100 MG TABLET (FP) PO SCH (21:55)
[2016-12-16] MEDS: traZODone HCL 100 MG TABLET (FP) PO SCH (21:55)
[2016-12-16] MEDS: QUEtiapine FUMARATE 100 MG TABLET (FP) PO SCH (21:55)
[2016-12-17] MEDS: IBUPROFEN 400 MG TABLET (FP) PO PRN (00:59)
[2016-12-17] MEDS: PRENATAL VITAMINS W/ FOLIC ACID TABLET (FP) PO SCH (10:03)
[2016-12-17] MEDS: traZODone HCL 100 MG TABLET (FP) PO SCH (21:31)
[2016-12-17] MEDS: THIAMINE HCL 100 MG TABLET (FP) PO SCH (21:32)
[2016-12-17] MEDS: QUEtiapine FUMARATE 100 MG TABLET (FP) PO SCH (21:32)
[2016-12-18] MEDS: PRENATAL VITAMINS W/ FOLIC ACID TABLET (FP) PO SCH (09:36)
[2016-12-18] MEDS: QUEtiapine FUMARATE 100 MG TABLET (FP) PO SCH (22:05)
[2016-12-18] MEDS: traZODone HCL 100 MG TABLET (FP) PO SCH (22:06)
[2016-12-18] MEDS: THIAMINE HCL 100 MG TABLET (FP) PO SCH (22:06)
[2016-12-19] MEDS: PRENATAL VITAMINS W/ FOLIC ACID TABLET (FP) PO SCH (10:33)
[2016-12-19] MEDS: THIAMINE HCL 100 MG TABLET (FP) PO SCH (21:43)
[2016-12-19] MEDS: traZODone HCL 100 MG TABLET (FP) PO SCH (21:43)
[2016-12-19] MEDS: QUEtiapine FUMARATE 100 MG TABLET (FP) PO SCH (21:43)
[2016-12-20] MEDS: PRENATAL VITAMINS W/ FOLIC ACID TABLET (FP) PO SCH (10:14)
[2016-12-20] MEDS: THIAMINE HCL 100 MG TABLET (FP) PO SCH (21:35)
[2016-12-20] MEDS: traZODone HCL 100 MG TABLET (FP) PO SCH (21:35)
[2016-12-20] MEDS: QUEtiapine FUMARATE 100 MG TABLET (FP) PO SCH (21:35)
[2016-12-21] MEDS: PRENATAL VITAMINS W/ FOLIC ACID TABLET (FP) PO SCH (10:38)
[2016-12-21] MEDS: traZODone HCL 100 MG TABLET (FP) PO SCH (22:00)
[2016-12-21] MEDS: QUEtiapine FUMARATE 100 MG TABLET (FP) PO SCH (22:00)
[2016-12-21] MEDS: THIAMINE HCL 100 MG TABLET (FP) PO SCH (22:01)
[2016-12-22] MEDS: PRENATAL VITAMINS W/ FOLIC ACID TABLET (FP) PO SCH (10:09)
[2016-12-22] MEDS: traZODone HCL 100 MG TABLET (FP) PO SCH (22:02)
[2016-12-22] MEDS: QUEtiapine FUMARATE 100 MG TABLET (FP) PO SCH (22:02)
[2016-12-22] MEDS: THIAMINE HCL 100 MG TABLET (FP) PO SCH (22:02)
[2016-12-23] MEDS: PRENATAL VITAMINS W/ FOLIC ACID TABLET (FP) PO SCH (10:30)
[2016-12-23] MEDS: QUEtiapine FUMARATE 100 MG TABLET (FP) PO SCH (22:07)
[2016-12-23] MEDS: THIAMINE HCL 100 MG TABLET (FP) PO SCH (22:08)
[2016-12-23] MEDS: traZODone HCL 100 MG TABLET (FP) PO SCH (22:08)
[2016-12-24] MEDS: PRENATAL VITAMINS W/ FOLIC ACID TABLET (FP) PO SCH (10:05)
[2016-12-24] MEDS: QUEtiapine FUMARATE 100 MG TABLET (FP) PO SCH (22:28)
[2016-12-24] MEDS: THIAMINE HCL 100 MG TABLET (FP) PO SCH (22:28)
[2016-12-24] MEDS: traZODone HCL 100 MG TABLET (FP) PO SCH (22:29)
[2016-12-25] MEDS: PRENATAL VITAMINS W/ FOLIC ACID TABLET (FP) PO SCH (10:05)
[2016-12-25] MEDS: THIAMINE HCL 100 MG TABLET (FP) PO SCH (21:50)
[2016-12-25] MEDS: traZODone HCL 100 MG TABLET (FP) PO SCH (21:50)
[2016-12-25] MEDS: QUEtiapine FUMARATE 100 MG TABLET (FP) PO SCH (21:50)
[2016-12-26] MEDS: PRENATAL VITAMINS W/ FOLIC ACID TABLET (FP) PO SCH (10:01)
--- NOTE | 2016-12-26 13:36 | PN ---
Psychiatric Progress Note Vital Signs: Vital Signs Period Temp Pulse Resp BP Sys/Mujica Pulse Ox Last 24 Hr 97.5 F 77 20-20 140/90 Date of Session: 12/26/16 Chief Complaint:: Psychiatrist Discharge Note HPI: Patient addressing Alcohol dependence comorbid with nicotine Dependence, Alcohol-Induced mood Disorder and Antisocial Personality Disorder ROS: DVT prophylaxis and GERD were medically managed Current Medications: Active Medications Generic Name Dose Route Start Last Admin Trade Name Freq PRN Reason Stop Dose Admin Acetaminophen 650 mg 12/07/16 14:14 Tylenol - PO Q4H PRN PAIN Al Hydroxide/Mg Hydroxide 30 ml 12/07/16 14:14 Mylanta Oral Suspension - PO Q6H PRN DYSPEPSIA Diphenhydramine HCl 50 mg 12/07/16 14:14 Benadryl - PO HSMR1 PRN INSOMNIA Eucalyptus/Menthol/Phenol/Sorbitol 1 each 12/07/16 14:14 Cepastat Lozenge - MM Q4H PRN SORE THROAT Guaifenesin 10 ml 12/07/16 14:14 12/09/16 21:42 Robitussin Dm - PO 10 ml Q6H PRN Administration COUGH Hydroxyzine Pamoate 50 mg 12/07/16 14:14 12/12/16 14:38 Vistaril - PO 50 mg Q4H PRN Administration AGITATION Ibuprofen 400 mg 12/07/16 14:14 12/17/16 00:59 Motrin - PO 400 mg Q6H PRN Administration SEVERE PAIN Loperamide HCl 4 mg 12/07/16 14:14 Imodium - PO Q6H PRN DIARRHEA Magnesium Citrate 300 ml 12/07/16 14:14 Citroma - PO Q48H PRN CONSTIPATION Magnesium Hydroxide 30 ml 12/07/16 14:14 Milk Of Magnesia - PO DAILY PRN CONSTIPATION Nicotine Polacrilex 4 mg 12/07/16 14:14 Nicorette Gum - BUC Q2H PRN NICOTINE REPLACEMENT RX Multivit/Folic Acid/Iron 1 tab 12/08/16 10:00 12/26/16 10:01 Vitamins (Sjr) - PO 1 tab DAILY UZAIR Administration Pseudoephedrine/Triprolidine 1 combo 12/07/16 14:14 Actifed - PO TID PRN NASAL CONGESTION Quetiapine Fumarate 100 mg 12/08/16 22:00 12/25/16 21:50 Seroquel - PO 100 mg HS UZAIR Administration Thiamine HCl 100 mg 12/07/16 22:00 12/25/16 21:50 Vitamin B1 - PO 100 mg HS UZAIR Administration Trazodone HCl 100 mg 12/12/16 22:00 12/25/16 21:50 Desyrel - PO 100 mg HS UZAIR Administration Current Side Effect: No Lab tests ordered: Yes Lab tests reviewed: Yes Provider note:: Patient will complete this program on 12/27/16. He has met his treatment goals and will continue to address his issues in outpatient treatment at [facility] located at [address] [place] [address]. He verbalized understanding of the negative consequences of his addiction and from his participation in this program, he has identified his pitfalls and has learned th tools to address them in order to maintain sobriety. He responded well to Trazadone 100 mg po Hs and Seroquel 100 mg po Hs. Scripts for 30 days supply of these medications rui be electronically transmited to [facility] at [address] [place] [address]. He is stable for discharge on 12/27/16 Total face to face time:: 35 Mental Status Exam - Mental Status Exam Alert and Oriented to: Time, Place, Person Cognitive Function: Fair Patient Appearance: Well Groomed Mood: Hopeful, Euthymic Affect: Appropriate Patient Behavior: Cooperative Speech Pattern: Clear Voice Loudness: Normal Thought Process: Intact Thought Disorder: Not Present Hallucinations: Denies Suicidal Ideation: Denies Homicidal Ideation: Denies Insight/Judgement: Fair Sleep: Fair Appetite: Good Muscle strength/Tone: Normal Gait/Station: Normal Psychiatric Treatment Plan - Problem List (1) Alcohol dependence with uncomplicated withdrawal Current Visit: No (2) Nicotine dependence Current Visit: No Qualifiers: Nicotine product type: cigarettes Substance use status: in withdrawal Qualified Code(s): F17.213 - Nicotine dependence, cigarettes, with withdrawal (3) Alcohol-induced mood disorder Current Visit: Yes (4) Bipolar disorder Current Visit: Yes (5) Antisocial personality disorder Current Visit: Yes (6) DVT prophylaxis Current Visit: No (7) GERD (gastroesophageal reflux disease) Current Visit: No Qualifiers: Esophagitis presence: without esophagitis Qualified Code(s): K21.9 - Gastro-esophageal reflux disease without esophagitis Initial treatment plan: Patient will be discharged tomorrow and refered to [facility] for outpatient treatment
[2016-12-26] MEDS: THIAMINE HCL 100 MG TABLET (FP) PO SCH (21:37)
[2016-12-26] MEDS: QUEtiapine FUMARATE 100 MG TABLET (FP) PO SCH (21:37)
[2016-12-26] MEDS: traZODone HCL 100 MG TABLET (FP) PO SCH (21:37)
[2016-12-27 06:58] VITALS: BP 133/82; PULSE 86; TEMP 98.4
[2016-12-27] MEDS: PRENATAL VITAMINS W/ FOLIC ACID TABLET (FP) PO SCH (09:29)
== END 2016-12-27 09:30 | disposition home or self-care (01) | DRG 772 ==
LOC: YASAS 09:45 → YASASADMIT 09:45 → Y3W 14:50
PROVIDERS: ADMIT Psychiatry & Neurology Psychiatry; ATTEND Psychiatry & Neurology Psychiatry
PROC: HZ42ZZZ Group Counseling for Substance Abuse Treatment, Cognitive-Behavioral (ICD-10-PCS; principal; 2016-12-07)
DX: F10.20 Alcohol dependence, uncomplicated (principal); F10.24 Alcohol dependence with alcohol-induced mood disorder; F17.210 Nicotine dependence, cigarettes, uncomplicated; F31.9 Bipolar disorder, unspecified; F60.2 Antisocial personality disorder; Z86.718 Personal history of other venous thrombosis and embolism; Z79.01 Long term (current) use of anticoagulants; K21.9 Gastro-esophageal reflux disease without esophagitis; Z86.69 Personal history of other diseases of the nervous system and sense organs
CPT/HCPCS: 81003; 90732; 93005; 93010; G0009

== ENCOUNTER 2022-07-08 19:51 | Emergency (ER) | payer OTHER ==
[2022-07-08 20:02] VITALS: RESP 18; BMI 35.9
[2022-07-08] MEDS ORDERED: ASPIRIN 81 MG CHEWABLE TABLETS PO ONE (21:47)
[2022-07-08] MEDS ORDERED: CLOPIDOGREL BISULFATE 300 MG TABLET PO ONE (21:47)
[2022-07-08 22:15] LABS: BASO % 0.8 % (0-2.0); EOS % 1.3 % (0-4.5); HEMATOCRIT 41.1 % (35.4-49); HEMOGLOBIN 14.1 GM/dL (11.7-16.9); LYMPH % 48.5 % (8-40); MCH 33.4 pg (25.7-33.7); MCHC 34.4 g/dl (32.0-35.9); MEAN PLT VOLUME 6.7 fl (7.5-11.1); MONO % 11.2 % (3.8-10.2); NEUT % 38.2 % (42.8-82.8); PLATELET COUNT 290 10^3/uL (134-434); RBC 4.23 M/mm3 (4.00-5.60); RDW 14.8 % (11.9-15.9); WHITE BLOOD COUNT 4.9 K/mm3 (4.0-10.0)
[2022-07-08 22:44] LABS: CALCIUM 8.9 mg/dL (8.5-10.1)
[2022-07-08 22:45] LABS: ALBUMIN 4.2 g/dl (3.4-5.0); BLOOD UREA NITROGEN 7.4 mg/dL (7-18)
[2022-07-08 22:48] LABS: CREATININE 0.9 mg/dL (0.55-1.3)
[2022-07-08 22:49] LABS: BILIRUBIN,TOTAL 0.3 mg/dL (0.2-1)
[2022-07-08 22:50] LABS: TOT PROT 8.4 g/dl (6.4-8.2)
[2022-07-09] MEDS ORDERED: ACETAMINOPHEN 325 MG TABLET (FP) PO ONE (05:19)
[2022-07-09] MEDS ORDERED: ACETAMINOPHEN 325 MG TABLET (FP) ONE (05:30)
[2022-07-09 07:19] VITALS: BP 143/92; PULSE 99; TEMP 98.7
== END 2022-07-09 08:00 ==
LOC: JER 19:51
DX: M54.2 Cervicalgia (principal); F10.129 Alcohol abuse with intoxication, unspecified
CPT/HCPCS: 36415; 70450-TC; 71046-TC-FY; 80053; 80307; 84484; 85025; 93005; 93010; 99285-25

== ENCOUNTER 2022-07-09 10:47 | Inpatient (IN) | payer OTHER ==
[2022-07-09 11:18] VITALS: BMI 34.9
[2022-07-09] MEDS ORDERED: P-EPHED 60MG/TRIPROLIDI 2.5MG TABLET PO PRN (11:28)
[2022-07-09] MEDS ORDERED: hydrOXYzine PAMOATE 25 MG CAPSULE (FP) PO PRN (11:28)
[2022-07-09] MEDS ORDERED: DICYCLOMINE HCL 10 MG CAPSULE PO PRN (11:28)
[2022-07-09] MEDS ORDERED: guaiFENesin 200 MG/10 ML 10 ML UNIT-DOSE CUPS PO PRN (11:28)
[2022-07-09] MEDS ORDERED: IBUPROFEN 600 MG TABLET (FP) PO PRN (11:28)
[2022-07-09] MEDS ORDERED: ACETAMINOPHEN 325 MG TABLET (FP) PO PRN ×2 (11:28)
[2022-07-09] MEDS ORDERED: IBUPROFEN 400 MG TABLET (FP) PO PRN (11:28)
[2022-07-09] MEDS ORDERED: METHOCARBAMOL 500 MG TABLET PO PRN (11:28)
[2022-07-09] MEDS ORDERED: LOPERAMIDE HCL 2 MG CAPSULE PO PRN (11:28)
[2022-07-09] MEDS ORDERED: MAGNESIUM CITRATE 300 ML BOTTLE PO PRN (11:28)
[2022-07-09] MEDS ORDERED: MAG HYDROX/AL HYDROX/SIMETH 30 ML UNIT-DOSE CUP PO PRN (11:28)
[2022-07-09] MEDS ORDERED: MAGNESIUM HYDROX 2400MG/30ML ORAL SUSPENSION 30 ML CUP PO PRN (11:28)
[2022-07-09] MEDS ORDERED: BISMUTH SUBSALICYLATE 524 MG/30 ML PO PRN (11:28)
[2022-07-09] MEDS ORDERED: BENZOCAINE/MENTHOL (CHLORASEPTIC ) LOZENGE MM PRN (11:28)
[2022-07-09] MEDS ORDERED: chlordiazePOXIDE HCL 25 MG CAPSULE PO ONE (11:30)
[2022-07-09] MEDS ORDERED: chlordiazePOXIDE HCL 25 MG CAPSULE PO PRN (11:30)
[2022-07-09] MEDS ORDERED: chlordiazePOXIDE HCL 25 MG CAPSULE ONE (12:36)
[2022-07-09] MEDS ORDERED: cloNIDine HCL 0.1 MG TABLET PO ONE (14:55)
[2022-07-09] MEDS: chlordiazePOXIDE HCL 25 MG CAPSULE PO SCH ×2 (17:54→22:49)
[2022-07-09] MEDS: THIAMINE HCL 100 MG TABLET (FP) PO SCH (22:49)
[2022-07-09] MEDS: MELATONIN 5 MG TABLETS PO PRN (22:50)
[2022-07-10] MEDS: chlordiazePOXIDE HCL 25 MG CAPSULE PO SCH ×4 (05:22→22:24)
[2022-07-10] MEDS: PRENATAL VITAMINS W/ FOLIC ACID TABLET (FP) PO SCH (10:43)
[2022-07-10] MEDS: THIAMINE HCL 100 MG TABLET (FP) PO SCH (22:24)
[2022-07-10] MEDS: QUEtiapine FUMARATE 50 MG TABLET PO SCH (22:24)
[2022-07-11] MEDS: chlordiazePOXIDE HCL 25 MG CAPSULE PO SCH ×4 (06:18→22:34)
[2022-07-11] MEDS: PRENATAL VITAMINS W/ FOLIC ACID TABLET (FP) PO SCH (10:21)
[2022-07-11] MEDS ORDERED: NICOTINE 10 MG CARTRIDGE (INHALER) IH PRN (12:52)
[2022-07-11] MEDS: THIAMINE HCL 100 MG TABLET (FP) PO SCH (22:35)
[2022-07-11] MEDS: QUEtiapine FUMARATE 50 MG TABLET PO SCH (22:35)
[2022-07-12] MEDS ORDERED: chlordiazePOXIDE HCL 10 MG CAPSULE PO PRN
[2022-07-12] MEDS: chlordiazePOXIDE HCL 10 MG CAPSULE PO SCH ×4 (05:32→22:13)
[2022-07-12] MEDS: PRENATAL VITAMINS W/ FOLIC ACID TABLET (FP) PO SCH (10:06)
[2022-07-12] MEDS: ONDANSETRON *ODT* 4 MG TABLET SL PRN (10:52)
[2022-07-12 10:55] LABS: CALCIUM 9.6 mg/dL (8.5-10.1)
[2022-07-12 10:56] LABS: ALBUMIN 3.6 g/dl (3.4-5.0); BLOOD UREA NITROGEN 16.1 mg/dL (7-18)
[2022-07-12 10:59] LABS: CREATININE 0.8 mg/dL (0.55-1.3)
[2022-07-12 11:00] LABS: BILIRUBIN,TOTAL 0.2 mg/dL (0.2-1)
[2022-07-12 11:04] LABS: HEMATOCRIT 42.7 % (35.4-49); HEMOGLOBIN 14.1 GM/dL (11.7-16.9); MCH 32.3 pg (25.7-33.7); MEAN PLT VOLUME 7.4 fl (7.5-11.1); PLATELET COUNT 270 10^3/uL (134-434); RBC 4.36 M/mm3 (4.00-5.60); RDW 15.1 % (11.9-15.9); WHITE BLOOD COUNT 5.3 K/mm3 (4.0-10.0)
[2022-07-12] MEDS: MELATONIN 5 MG TABLETS PO PRN (22:13)
[2022-07-12] MEDS: QUEtiapine FUMARATE 50 MG TABLET PO SCH (22:13)
[2022-07-12] MEDS: THIAMINE HCL 100 MG TABLET (FP) PO SCH (22:13)
[2022-07-13] MEDS: chlordiazePOXIDE HCL 10 MG CAPSULE PO SCH ×2 (06:14→18:21)
[2022-07-13] MEDS: PRENATAL VITAMINS W/ FOLIC ACID TABLET (FP) PO SCH (10:35)
[2022-07-13] MEDS: ONDANSETRON *ODT* 4 MG TABLET SL PRN (18:21)
[2022-07-13] MEDS: MELATONIN 5 MG TABLETS PO PRN (22:37)
[2022-07-13] MEDS: QUEtiapine FUMARATE 50 MG TABLET PO SCH (22:37)
[2022-07-13] MEDS: THIAMINE HCL 100 MG TABLET (FP) PO SCH (22:37)
[2022-07-14] MEDS ORDERED: chlordiazePOXIDE HCL 10 MG CAPSULE PO ONE (05:00)
[2022-07-14 09:50] VITALS: BP 129/86; PULSE 68; RESP 16; TEMP 97.5
[2022-07-14] MEDS: PRENATAL VITAMINS W/ FOLIC ACID TABLET (FP) PO SCH (10:25)
== END 2022-07-14 10:55 | disposition home or self-care (01) | DRG 775 ==
LOC: EDBD 10:47 → YASAS 10:47 → MERGE 13:32 → Y3N 13:32
PROVIDERS: ADMIT Allergy & Immunology; ATTEND Surgery
PROC: HZ2ZZZZ Detoxification Services for Substance Abuse Treatment (ICD-10-PCS; principal; 2022-07-09)
DX: F10.230 Alcohol dependence with withdrawal, uncomplicated (principal); F16.20 Hallucinogen dependence, uncomplicated; F12.10 Cannabis abuse, uncomplicated; F17.210 Nicotine dependence, cigarettes, uncomplicated; F10.280 Alcohol dependence with alcohol-induced anxiety disorder; F10.282 Alcohol dependence with alcohol-induced sleep disorder; F41.9 Anxiety disorder, unspecified; I10 Essential (primary) hypertension; Z62.810 Personal history of physical and sexual abuse in childhood; Z91.410 Personal history of adult physical and sexual abuse; Z86.69 Personal history of other diseases of the nervous system and sense organs
CPT/HCPCS: 36415; 80053; 85027; 86780; 87811; C9803-CS; Q0162; U0003; U0005

== ENCOUNTER 2022-07-19 03:28 | Inpatient (IN) | payer OTHER ==
[2022-07-19 03:37] VITALS: BMI 28.3
[2022-07-19] MEDS ORDERED: LOPERAMIDE HCL 2 MG CAPSULE PO PRN (03:48)
[2022-07-19] MEDS ORDERED: BENZOCAINE/MENTHOL (CHLORASEPTIC ) LOZENGE MM PRN (03:48)
[2022-07-19] MEDS ORDERED: BISMUTH SUBSALICYLATE 524 MG/30 ML PO PRN (03:48)
[2022-07-19] MEDS ORDERED: NALOXONE HCL (KLOXXADO) 8 MG SPRAY NS PRN (03:48)
[2022-07-19] MEDS ORDERED: P-EPHED 60MG/TRIPROLIDI 2.5MG TABLET PO PRN (03:48)
[2022-07-19] MEDS ORDERED: DICYCLOMINE HCL 10 MG CAPSULE PO PRN (03:48)
[2022-07-19] MEDS ORDERED: IBUPROFEN 600 MG TABLET (FP) PO PRN (03:48)
[2022-07-19] MEDS ORDERED: ONDANSETRON *ODT* 4 MG TABLET SL PRN (03:48)
[2022-07-19] MEDS ORDERED: MAGNESIUM HYDROX 2400MG/30ML ORAL SUSPENSION 30 ML CUP PO PRN (03:48)
[2022-07-19] MEDS ORDERED: IBUPROFEN 400 MG TABLET (FP) PO PRN (03:48)
[2022-07-19] MEDS ORDERED: guaiFENesin 200 MG/10 ML 10 ML UNIT-DOSE CUPS PO PRN (03:48)
[2022-07-19] MEDS ORDERED: MAG HYDROX/AL HYDROX/SIMETH 30 ML UNIT-DOSE CUP PO PRN (03:48)
[2022-07-19] MEDS ORDERED: MAGNESIUM CITRATE 300 ML BOTTLE PO PRN (03:48)
[2022-07-19] MEDS ORDERED: NICOTINE POLACRILEX 2 MG GUM BUC PRN (03:48)
[2022-07-19] MEDS ORDERED: ACETAMINOPHEN 325 MG TABLET (FP) PO PRN ×2 (03:48)
[2022-07-19] MEDS: PRENATAL VITAMINS W/ FOLIC ACID TABLET (FP) PO SCH (10:11)
[2022-07-19] MEDS: NICOTINE 21 MG/24 HOURS TOPICAL PATCH TD SCH (10:12)
[2022-07-19 17:09] LABS: HEMATOCRIT 39.2 % (35.4-49); MCH 32.3 pg (25.7-33.7); MCHC 33.2 g/dl (32.0-35.9); MEAN CELL VOLUME 97.4 fl (80-96); MEAN PLT VOLUME 7.2 fl (7.5-11.1); PLATELET COUNT 251 10^3/uL (134-434); RBC 4.03 M/mm3 (4.00-5.60); RDW 14.6 % (11.9-15.9); WHITE BLOOD COUNT 4.6 K/mm3 (4.0-10.0)
[2022-07-19 17:15] LABS: ALBUMIN 3.5 g/dl (3.4-5.0); BLOOD UREA NITROGEN 13.4 mg/dL (7-18); CALCIUM 8.6 mg/dL (8.5-10.1)
[2022-07-19 17:20] LABS: BILIRUBIN,TOTAL 0.1 mg/dL (0.2-1); TOT PROT 6.8 g/dl (6.4-8.2)
[2022-07-19 21:24] VITALS: RESP 18
[2022-07-19] MEDS: MELATONIN 5 MG TABLETS PO SCH (22:27)
[2022-07-19] MEDS: METHOCARBAMOL 500 MG TABLET PO PRN (22:27)
[2022-07-19] MEDS: THIAMINE HCL 100 MG TABLET (FP) PO SCH (22:27)
[2022-07-19] MEDS: hydrOXYzine PAMOATE 25 MG CAPSULE (FP) PO PRN (22:27)
[2022-07-20] MEDS: hydrOXYzine PAMOATE 25 MG CAPSULE (FP) PO PRN ×2 (10:40→18:47)
[2022-07-20] MEDS: NICOTINE 21 MG/24 HOURS TOPICAL PATCH TD SCH (10:40)
[2022-07-20] MEDS: PRENATAL VITAMINS W/ FOLIC ACID TABLET (FP) PO SCH (10:40)
[2022-07-20] MEDS: METHOCARBAMOL 500 MG TABLET PO PRN ×2 (10:42→18:47)
[2022-07-20] MEDS ORDERED: LISINOPRIL 5 MG TABLET PO ONE (21:58)
[2022-07-20] MEDS ORDERED: QUEtiapine FUMARATE 50 MG TABLET PO SCH (22:00)
[2022-07-20] MEDS ORDERED: traZODone HCL 50 MG TABLET (FP) PO SCH (22:00)
[2022-07-20] MEDS: MELATONIN 5 MG TABLETS PO SCH (22:25)
[2022-07-20] MEDS: THIAMINE HCL 100 MG TABLET (FP) PO SCH (22:25)
[2022-07-21 08:54] VITALS: BP 154/97; PULSE 72; TEMP 97.1
[2022-07-21] MEDS: NICOTINE 21 MG/24 HOURS TOPICAL PATCH TD SCH (10:09)
[2022-07-21] MEDS: PRENATAL VITAMINS W/ FOLIC ACID TABLET (FP) PO SCH (10:09)
== END 2022-07-21 10:11 | disposition home or self-care (01) | DRG 774 ==
LOC: YASAS 03:28 → Y3N 04:01
PROVIDERS: ADMIT Allergy & Immunology; ATTEND Allergy & Immunology
PROC: HZ2ZZZZ Detoxification Services for Substance Abuse Treatment (ICD-10-PCS; principal; 2022-07-19)
DX: F10.230 Alcohol dependence with withdrawal, uncomplicated (principal); F14.20 Cocaine dependence, uncomplicated; F12.10 Cannabis abuse, uncomplicated; F25.9 Schizoaffective disorder, unspecified; F31.9 Bipolar disorder, unspecified; F17.210 Nicotine dependence, cigarettes, uncomplicated; G47.00 Insomnia, unspecified; I10 Essential (primary) hypertension; J44.9 Chronic obstructive pulmonary disease, unspecified; Z86.69 Personal history of other diseases of the nervous system and sense organs
CPT/HCPCS: 36415; 80053; 85027; 86780; C9803-CS; Q0162; U0003; U0005